=== PATIENT | female | born 1980 | race Caucasian/White ===

== ENCOUNTER 2023-06-21 15:07 | Emergency (ER) | payer MEDICARE, OTHER, SELFPAY ==
[2023-06-21 15:15] VITALS: BP 157/104
--- NOTE | 2023-06-21 16:35 | ED.MUSCINJ ---
HPI-Injury
General
Chief Complaint: Musculo-Skeletal Complaint
Source: patient
Exam Limitations: none
Time Seen by Provider: 06/21/23 15:24
Nursing documentation reviewed up to this point in time: agreed with
Travel History
Have you had any contact with someone who has COVID-19?: No
Do you have any symptoms of coronavirus? Fever > 100 degrees, chills, cough, shortness of breath, sore throat, loss of taste or smell, muscle aches, or headache?: No
History of Present Illness-Injury
Initial Injury comments:
43-year-old female presents with pain in her right fifth toe after stubbing it earlier today. She is able to ambulate comfortably.
Past History
Past History
ED Past Medical History: Hypothyroidism and Psychiatric
ED Past Surgical History: Other (Umbilical herniorrhaphy)
Social History
Tobacco: Non-smoker
Alcohol: None
Drug: None
Personal: Single
Living: with family
Employment: Not employed
Family History
Family History: Diabetes (Patient's mother has diabetes) and Other (She has a mother who has diabetes and hypertension); Negative Hypertension, Early CAD, CAD, Asthma or Cancer
Review of Systems
Review of Systems
Allergies reviewed?: Yes
All Other Systems: ROS reviewed and negative except as documented in HPI and ROS
Musculoskeletal: Reports other (Pain right fifth toe)
Skin: Reports no symptoms
Phy Exam
Physical Exam
Physical Exam:
PHYSICAL EXAMINATION:
General: no apparent distress, not acutely ill
Neuro: alert and oriented.
Psychiatric: well kept. interactive and cooperative
Musculoskeletal: Moves with ease, minimal swelling right fifth toe. The rest of the foot is normal
Skin: Warm, pink.
Injury Course
Orders/Labs/Results
Orders:
Orders
06/21/23 15:25
CR Toe(s) Min 2 Vw Right Urgent
Comment:
Reason For Exam: stubbed 5th toe
MDM/Problems Addressed
Differential Diagnosis Includes:
Fracture, contusion, sprain
MDM/Problems Addressed:
43-year-old female presents with pain in her right fifth toe after stubbing it earlier today. She is able to ambulate comfortably.
X-ray of right fifth toe initially read by this examiner: New fracture
*Critical Care Note
Total Time (30-74mins, 75-104mins- exclusive of procedures): Not Applicable
ED Attending Note
-
Portions of this chart may have been created with voice recognition software.� Occasional wrong word or��sound alike� substitutions may have occurred due to the inherent limitations of voice recognition software.
Discharge Plan
Departure
Patient Disposition: Home (Routine Discharge)
Date of Disposition: 06/21/23
Time of Disposition: 16:39
Patient with high blood pressure during this ER visit?: No
Condition: Good
Discharge Problem:
Contusion of fifth toe of right foot
Instructions: Contusion (DC), BLOOD PRESSURE
Prescriptions:
No Action
norgestimate-ethinyl estradiol [Ivon] 0.25-35 mg-mcg Tablet
1 tab PO DAILY
acetaminophen [Tylenol] 325 mg Tablet
650 mg PO PRN PRN (Reason: pain)
divalproex [Depakote] 500 mg Tablet,Delayed Release (Dr/Ec)
1,500 mg PO QPM
escitalopram oxalate [Lexapro] 20 mg Tablet
20 mg PO DAILY
quetiapine [Seroquel] 400 mg Tablet
400 mg PO QPM
hydrocodone-acetaminophen 5-325 mg tablet
1 tab PO Q6H PRN (Reason: pain) Qty: 20 0RF
Activity Restrictions/Additional Instructions:
As we discussed, the x-ray shows nothing is broken.
Have your blood pressure rechecked in the next week. See your doctor if the top number is consistently above 130
Interventions
Interventions:
*Risk Screen - Suicide Last Done: 06/21/23 15:15
*General Assessment Last Done: 06/21/23 15:15
*Neglect/Abuse Screening Last Done: 06/21/23 15:15
ED- Fall Risk Assessment Last Done: 06/21/23 17:07
*ED COVID-19 Vaccine History Last Done: 06/21/23 15:22
*Nursing Disposition Last Done: 06/21/23 17:07
ED-Musculoskeletal Assessment Last Done: 06/21/23 16:02
Discharge Date and Time
Discharge Date/Time: 06/21/23 17:08
Print Language: YORUBA
[2023-06-21 16:58] VITALS: BP 154/92
== END 2023-06-21 17:08 | disposition home or self-care (01) ==
LOC: EMR 15:07
PROVIDERS: EMERGENCY PHYSICIAN Emergency Medicine; FAMILY PHYSICIAN Family Medicine
DX: S90.121A Contusion of right lesser toe(s) without damage to nail, initial encounter (principal); W22.8XXA Striking against or struck by other objects, initial encounter
CPT/HCPCS: 99283; 73660

== ENCOUNTER 2023-09-12 14:18 | Emergency (ER) | payer MEDICARE, OTHER, SELFPAY ==
[2023-09-12 14:21] VITALS: BP 155/98
[2023-09-12 15:36] VITALS: BP 147/94; BMI 47.0
--- NOTE | 2023-09-12 16:09 | ED.GENMED ---
History of Present Illness
General
Chief Complaint: Skin Problem
Source: patient
Time Seen by Provider: 09/12/23 16:02
History of Present Illness
History of Present Illness:
43yoF with a history of obesity and bipolar disorder presenting with her father for evaluation of a right thigh boil that started about 4 days ago. She states she has a history of similar boils in the past and she believes it developed due to the
heat and friction from walking. She was seen by her PCP 3 days ago and started on doxycycline. She reports compliance with the antibiotics but her symptoms have not improved. Her PCP advised her to go to the ED for evaluation. She denies any
worsening symptoms. No fevers or chills.
Past History
Past History
ED Past Medical History: Hypothyroidism and Psychiatric
ED Past Surgical History: Other (Umbilical herniorrhaphy)
Social History
Tobacco: Non-smoker
Alcohol: None
Drug: None
Personal: Single
Living: with family
Employment: Not employed
Family History
Family History: Diabetes (Patient's mother has diabetes) and Other (She has a mother who has diabetes and hypertension); Negative Hypertension, Early CAD, CAD, Asthma or Cancer
Phy Exam
Physical Exam
Physical Exam:
Approx 2cm x 3cm area of induration and swelling present to the right upper medial thigh. Small amount of surrounding cellulitis. No crepitus.
General Physical Exam
General Presentation: well appearing and no apparent distress
General age: appears stated age
General Skin: warm and dry
General Habitus: normal
Course
Orders/Labs/Results
Orders:
Orders
09/12/23 16:34
Test Result ONCE
09/12/23 16:43
HCG, Urine Qualitative Screen Urgent
Date Specimen was Collected: 09/12/23
Time Specimen was Collected: 16:38
Vital Signs
Initial and Last Documented VS:
Initial Vital Signs
Temp Pulse Resp BP Pulse Ox
98.0 F 117 18 155/98 98
09/12/23 14:21 09/12/23 14:21 09/12/23 14:21 09/12/23 14:21 09/12/23 14:21
Last Documented Vital Signs
Temp Pulse Resp BP Pulse Ox
98.0 F 103 18 147/94 100
09/12/23 14:21 09/12/23 15:36 09/12/23 15:36 09/12/23 15:36 09/12/23 15:36
Procedures
Incision/Drainage/Joint Aspiration
Right Medial Groin:
Anethesia: 1% Lidocaine with Epi
Preparation: cleaned with Betadine
Type of procedure: incise and drain
Nature of site: abscess
Description of abscess: less than 3cm
Loculations broken up: Yes
How much fluid was obtained?: small amount
Fluid description: purulent and bloody
Treatment: left open for drainage
MDM/Problems Addressed
Differential Diagnosis Includes:
43yoF here with a R thigh/groin abscess. Taking doxycycline without improvement. No f/c. Patient is well-appearing in no acute distress. She is afebrile and hemodynamically stable. Patient has a focal area of induration and swelling with a small
amount of surrounding cellulitis. No evidence of NSTI.
*Critical Care Note
Total Time (30-74mins, 75-104mins- exclusive of procedures): Not Applicable
Update Note
Update Note:
I&D performed as above. Small to moderate amount of purulence and bloody drainage expressed. Patient tolerated well with immediate complications. Patient advised to continue doxycycline and add warm compresses. Advised follow-up with PCP and
return to the ED with any worsening symptoms. Patient was discharged stable condition.
ED Attending Note
-
Portions of this chart may have been created with voice recognition software.� Occasional wrong word or��sound alike� substitutions may have occurred due to the inherent limitations of voice recognition software.
Discharge Plan
Departure
Patient Disposition: Home (Routine Discharge)
Date of Disposition: 09/12/23
Time of Disposition: 16:36
Patient with high blood pressure during this ER visit?: Yes
Discharge Problem:
Abscess of right thigh
Instructions: Skin Abscess
Prescriptions:
No Action
norgestimate-ethinyl estradiol [Ivon] 0.25-35 mg-mcg Tablet
1 tab PO DAILY
acetaminophen [Tylenol] 325 mg Tablet
650 mg PO PRN PRN (Reason: pain)
divalproex [Depakote] 500 mg Tablet,Delayed Release (Dr/Ec)
1,500 mg PO QPM
escitalopram oxalate [Lexapro] 20 mg Tablet
20 mg PO DAILY
quetiapine [Seroquel] 400 mg Tablet
400 mg PO QPM
hydrocodone-acetaminophen 5-325 mg tablet
1 tab PO Q6H PRN (Reason: pain) Qty: 20 0RF
Referrals:
Ricki Ruiz MD [Family Provider] -
Activity Restrictions/Additional Instructions:
Continue taking the antibiotics as prescribed. Apply warm compresses to area 4-6x daily.
Please follow-up with your family doctor. Return to the ER with any worsening symptoms, fevers, chills.
Interventions
Interventions:
ED- Fall Risk Assessment Last Done: 09/12/23 15:36
*Nursing Disposition Last Done: 09/12/23 17:08
ED-Skin Assessment Last Done: 09/12/23 15:36
Discharge Date and Time
Discharge Date/Time: 09/12/23 17:08
Print Language: NEPALI
[2023-09-12 16:51] LABS: HCG, Urine Qualitative Screen Negative
== END 2023-09-12 17:08 | disposition home or self-care (01) ==
LOC: EMR 14:18
PROVIDERS: Physician Assistant; EMERGENCY PHYSICIAN Emergency Medicine; FAMILY PHYSICIAN Family Medicine
DX: L02.415 Cutaneous abscess of right lower limb (principal); F31.9 Bipolar disorder, unspecified; R03.0 Elevated blood-pressure reading, without diagnosis of hypertension
CPT/HCPCS: 99282; 10060; 81025

== ENCOUNTER → 2024-06-12 09:18 | Outpatient (REF) | payer MEDICARE, OTHER, SELFPAY ==
[2024-06-12 10:22] LABS: % Basophils 0.4 % (0-2); % Eosinophils 0.9 % (0-6); % Immature Granulocytes 0.4 % (0-0.5); % Lymphocytes 22.6 % (20.5-51.1); % Monocytes 5.6 % (1.7-9.3); % Neutrophils 70.1 % (42.2-75.2); Absolute Basophils 0.1 10^3/uL (0-0.2); Absolute Eosinophils 0.1 10^3/uL (0-0.7); Absolute Immature Granulocytes 0.1 10^3/uL (0-0.05); Absolute Lymphocytes 3.2 10^3/uL (1.2-3.4); Absolute Monocytes 0.8 10^3/uL (0.1-0.6); Absolute Neutrophils 9.8 10^3/uL (1.4-6.5); Hemoglobin 14.3 g/dL (12.0-16.0); Mean Corp Hgb Conc. 33.3 g/dL (33.0-37.0); Mean Corpuscular Hgb 28.9 pg (27.0-31.0); Mean Platelet Volume 10.5 fL (7.4-10.4); Nucleated Red Blood Cells % 0 %; Platelet Count 255 10^3/uL (130-400); Red Blood Cell Count 4.94 10^6/uL (4.20-5.40); Red Cell Dist. Width 12.8 % (11.5-14.5)
[2024-06-12 10:44] LABS: Carbon Dioxide 23 mmol/L (22-30)
[2024-06-12 12:43] LABS: ALT (SGPT) 14 U/L (0-35); AST (SGOT) 17 U/L (14-36); Albumin 4.8 g/dl (3.5-5.0); Alkaline Phosphatase 133 U/L (38-126); Blood Urea Nitrogen 12 mg/dl (7-17); Calcium 10.2 mg/dl (8.4-10.2); Chloride 107 mmol/L (98-107); Glucose 126 mg/dl (70-99); HDL Cholesterol 93 mg/dl; LDL Cholesterol, Calculated 88 mg/dl; Potassium 3.8 mmol/L (3.5-5.1); Sodium 142 mmol/L (135-145); Total Bilirubin 0.7 mg/dl (0.2-1.3); Total Cholesterol 209 mg/dl (50-199); Total Protein 7.3 g/dl (6.3-8.2); Triglyceride 140 mg/dl (10-149); Very Low Density Lipoprotein 28 mg/dl (0-30); eGFR > 60.00
[2024-06-13 17:56] LABS: Lamotrigine (Lamictal) 1.7 ug/mL (3.0-15.0)
== END ==
LOC: RCS 09:18
PROVIDERS: ATTENDING PHYSICIAN Nurse Practitioner Psychiatric/Mental Health; FAMILY PHYSICIAN Family Medicine
DX: Z79.899 Other long term (current) drug therapy (principal)
CPT/HCPCS: 36415; 80053; 80061; 80175; 85025; 93005

== ENCOUNTER 2024-06-24 12:34 | Emergency (ER) | payer MEDICARE, OTHER, SELFPAY ==
[2024-06-24 12:37] VITALS: BP 165/100
--- NOTE | 2024-06-24 13:45 | ED.GENMED ---
History of Present Illness
General
Chief Complaint: Medication Reaction
Source: patient
Exam Limitations: none
Time Seen by Provider: 06/24/24 13:45
Nursing documentation reviewed up to this point in time: agreed with
History of Present Illness
History of Present Illness:
44-year-old female with history of anxiety, bipolar disorder, panic attacks, depression presents for concern about not being able to eat, nausea, (no vomiting) due to feeling anxious about weaning off her Zyprexa and starting on Seroquel. She has
also awakened in the middle of the night with sweating past 2 nights. She has Lorazepam at home to use if needed. Took a dose 2 nights ago with no relief of her anxiety.
She cannot speak to her Psychiatrist for 2 more days (after vacation).
Denies SI or self harm thoughts. She has been able to eat yogurt
Past History
Past History
ED Past Medical History: Hypothyroidism and Psychiatric
ED Past Surgical History: Other (Umbilical herniorrhaphy)
Social History
Tobacco: Non-smoker
Alcohol: None
Drug: None
Personal: Single
Living: with family
Employment: Not employed
Family History
Family History: Diabetes (Patient's mother has diabetes) and Other (She has a mother who has diabetes and hypertension); Negative Hypertension, Early CAD, CAD, Asthma or Cancer
Review of Systems
Review of Systems
Allergies reviewed?: Yes
Constitutional: Denies fever
Respiratory: Denies trouble breathing
Cardiac: Denies chest pain
ABD/GI: Reports nausea and diarrhea; Denies abdominal pain or vomiting
: Denies dysuria, frequency or difficulty voiding
Skin: Reports no symptoms
Neurological: Reports no symptoms
Phy Exam
Physical Exam
Physical Exam:
GENERAL: No acute distress. A&Ox3.
CONSTITUTIONAL: Afebrile.
EYES: clear, conjunctivae normal
ENMT: moist mucus membranes, Pharynx nl
RESPIRATORY: Regular respirations, nonlabored, lungs clear.
CARDIOVASCULAR: Regular rate and rhythm, no murmurs, no rubs.
GI: Soft, nontender, normal BS
MUSCULOSKELETAL: Moves with ease. Well perfused.
SKIN: Warm, dry, pink
PSYCH: Mildly anxious mood and affect. Well kept, interactive and appropriate
NEUROLOGIC: Awake, alert and oriented. No focal neurological deficits
Course
Orders/Labs/Results
Orders:
Orders
06/24/24 14:36
Complete Blood Count/With Diff Urgent
Comprehensive Metabolic Panel Urgent
TSH Reflex To Free T4 Urgent
06/24/24 15:22
Dicyclomine [Bentyl] 10 mg PO NOW STA
Abnormal Lab Results
06/24/24
14:36
WBC 14.6 H 10^3/uL
(4.8-10.8)
Abs Immat Gran (auto) 0.1 H 10^3/uL
(0-0.05)
Absolute Neuts (auto) 9.9 H 10^3/uL
(1.4-6.5)
Absolute Lymphs (auto) 3.7 H 10^3/uL
(1.2-3.4)
Absolute Monos (auto) 0.9 H 10^3/uL
(0.1-0.6)
Chloride 109 H mmol/L
(98-107)
Carbon Dioxide 20 L mmol/L
(22-30)
Glucose 122 H mg/dl
(70-99)
Calcium 10.5 H mg/dl
(8.4-10.2)
06/24/24 14:36
06/24/24 14:36
Vital Signs
Initial and Last Documented VS:
Initial Vital Signs
Temp Pulse Resp BP Pulse Ox
98.2 F 102 18 165/100 98
06/24/24 12:37 06/24/24 12:37 06/24/24 12:37 06/24/24 12:37 06/24/24 12:37
Last Documented Vital Signs
Temp Pulse Resp BP Pulse Ox
98.2 F 102 18 165/100 98
06/24/24 12:37 06/24/24 12:37 06/24/24 12:37 06/24/24 12:37 06/24/24 12:37
MDM/Problems Addressed
Differential Diagnosis Includes:
anxiety about health, side effect of medications, hormonal abnormality
MDM/Problems Addressed:
44-year-old female with history of anxiety, bipolar disorder, panic attacks, depression presents for concern about not being able to eat, nausea, (no vomiting) due to feeling anxious about weaning off her Zyprexa and starting on Seroquel. She has
also awakened in the middle of the night with sweating past 2 nights. She has Lorazepam at home to use if needed. Took a dose 2 nights ago with no relief of her anxiety.
She cannot speak to her Psychiatrist for 2 more days (after vacation).
Denies SI or self harm thoughts. She has been able to eat yogurt
She states she is mainly concerned about not being able to eat
Had out pt labwork 12 days ago CBC, CMP with mild leukocytosis, otherwise normal.
3:15 PM:
CBC unchanged from 12 days ago. Mild leukocytosis may be reactive from stress, anxiety and nausea
Patient reassured, instructed to recheck WBC in 1-2 weeks
She has remained pleasant, states she is hungry and wants to get something to eat.
*Critical Care Note
Total Time (30-74mins, 75-104mins- exclusive of procedures): Not Applicable
ED Attending Note
-
Portions of this chart may have been created with voice recognition software.� Occasional wrong word or��sound alike� substitutions may have occurred due to the inherent limitations of voice recognition software.
Discharge Plan
Departure
Patient Disposition: Home (Routine Discharge)
Date of Disposition: 06/24/24
Time of Disposition: 15:23
Patient with high blood pressure during this ER visit?: No
Condition: Good
Discharge Problem:
Anxiety about health, Nausea, Abdominal pain
Instructions: Abdominal pain in adults - Discharge instructions, Anxiety in adults - ED discharge instructions
Prescriptions:
New
dicyclomine 10 mg capsule
10 mg PO QID PRN (Reason: abdominal cramping) Qty: 20 0RF
No Action
norgestimate-ethinyl estradiol [Ivon] 0.25-35 mg-mcg Tablet
1 tab PO DAILY
acetaminophen [Tylenol] 325 mg Tablet
650 mg PO PRN PRN (Reason: pain)
divalproex [Depakote] 500 mg Tablet,Delayed Release (Dr/Ec)
1,500 mg PO QPM
escitalopram oxalate [Lexapro] 20 mg Tablet
20 mg PO DAILY
quetiapine [Seroquel] 400 mg Tablet
400 mg PO QPM
hydrocodone-acetaminophen 5-325 mg tablet
1 tab PO Q6H PRN (Reason: pain) Qty: 20 0RF
Referrals:
Your, Psychiatrist [Other] - Call in 1-3 days for appt
Ricki Ruiz MD [Family Provider] -
Activity Restrictions/Additional Instructions:
As we discussed, nothing worrisome in your exam here today. Your white blood cell count is a little elevated but that is most likely due to stress/anxiety
Make an appointment with your primary doctor and have it rechecked in a week.
Contact your psychiatrist on Tuesday and inform of today's visit.
Use your lorazepam as if needed
I sent a prescription to your pharmacy for Bentyl to use as needed for abdominal cramping. You were given a dose here today.
Get out and take a walk if it is even for 5 minutes a couple of times a day now that the weather is nice. Physical exercise definitely helps ease stress and anxiety
Contact your [facility] Support Program in [place] and make appointment
Interventions
Interventions:
*Risk Screen - Suicide Last Done: 06/24/24 12:36
*General Assessment Last Done: 06/24/24 12:37
*Neglect/Abuse Screening Last Done: 06/24/24 12:37
*ED COVID-19 Vaccine History Last Done: 06/24/24 12:37
Discharge Date and Time
Print Language: MONGOLIAN
[2024-06-24 14:47] LABS: % Basophils 0.3 % (0-2); % Eosinophils 0.4 % (0-6); % Immature Granulocytes 0.5 % (0-0.5); % Lymphocytes 25.1 % (20.5-51.1); % Monocytes 6.1 % (1.7-9.3); % Neutrophils 67.6 % (42.2-75.2); Absolute Eosinophils 0.1 10^3/uL (0-0.7); Absolute Immature Granulocytes 0.1 10^3/uL (0-0.05); Absolute Lymphocytes 3.7 10^3/uL (1.2-3.4); Absolute Monocytes 0.9 10^3/uL (0.1-0.6); Absolute Neutrophils 9.9 10^3/uL (1.4-6.5); Hematocrit 40.6 % (37.0-47.0); Hemoglobin 14.2 g/dL (12.0-16.0); Mean Corpuscular Hgb 29.3 pg (27.0-31.0); Mean Corpuscular Volume 83.7 fL (81.0-99.0); Mean Platelet Volume 9.7 fL (7.4-10.4); Nucleated Red Blood Cells % 0 %; Platelet Count 277 10^3/uL (130-400); Red Blood Cell Count 4.85 10^6/uL (4.20-5.40); Red Cell Dist. Width 12.7 % (11.5-14.5); White Blood Cell Count 14.6 10^3/uL (4.8-10.8)
[2024-06-24 14:57] LABS: ALT (SGPT) 20 U/L (0-35); AST (SGOT) 20 U/L (14-36); Albumin 4.5 g/dl (3.5-5.0); Alkaline Phosphatase 110 U/L (38-126); Blood Urea Nitrogen 12 mg/dl (7-17); Calcium 10.5 mg/dl (8.4-10.2); Carbon Dioxide 20 mmol/L (22-30); Chloride 109 mmol/L (98-107); Glucose 122 mg/dl (70-99); Sodium 139 mmol/L (135-145); Total Bilirubin 0.7 mg/dl (0.2-1.3); Total Protein 7.1 g/dl (6.3-8.2); eGFR > 60.00
[2024-06-24 15:32] LABS: TSH Reflex To Free T4 3.89 uIU/ml (0.47-4.68)
[2024-06-24] MEDS: BENTYL 10 MG PO (15:46)
[2024-06-24 15:54] VITALS: BP 114/93
== END 2024-06-24 16:07 | disposition home or self-care (01) ==
LOC: EMR 12:34
PROVIDERS: Registered Nurse; EMERGENCY PHYSICIAN Emergency Medicine; FAMILY PHYSICIAN Family Medicine
DX: F41.9 Anxiety disorder, unspecified (principal); R11.0 Nausea; R10.9 Unspecified abdominal pain
CPT/HCPCS: 99283; 80053; 84443; 85025

== ENCOUNTER 2024-06-26 15:21 | Emergency (ER) | payer MEDICARE, OTHER, SELFPAY ==
[2024-06-26 15:30] VITALS: BP 148/106
[2024-06-26 15:48] LABS: % Basophils 0.6 % (0-2); % Eosinophils 0.1 % (0-6); % Immature Granulocytes 0.7 % (0-0.5); % Lymphocytes 20.8 % (20.5-51.1); % Monocytes 5.8 % (1.7-9.3); Absolute Basophils 0.1 10^3/uL (0-0.2); Absolute Immature Granulocytes 0.1 10^3/uL (0-0.05); Absolute Lymphocytes 3.4 10^3/uL (1.2-3.4); Absolute Monocytes 0.9 10^3/uL (0.1-0.6); Absolute Neutrophils 11.7 10^3/uL (1.4-6.5); Hematocrit 42.7 % (37.0-47.0); Hemoglobin 14.7 g/dL (12.0-16.0); Mean Corp Hgb Conc. 34.4 g/dL (33.0-37.0); Mean Corpuscular Hgb 28.9 pg (27.0-31.0); Mean Corpuscular Volume 84.1 fL (81.0-99.0); Mean Platelet Volume 10.1 fL (7.4-10.4); Nucleated Red Blood Cells % 0 %; Platelet Count 282 10^3/uL (130-400); Red Blood Cell Count 5.08 10^6/uL (4.20-5.40); Red Cell Dist. Width 12.7 % (11.5-14.5); White Blood Cell Count 16.3 10^3/uL (4.8-10.8)
[2024-06-26 15:57] LABS: HCG, Serum Qualitative Screen Negative
[2024-06-26 16:05] LABS: ALT (SGPT) 42 U/L (0-35); AST (SGOT) 35 U/L (14-36); Albumin 4.9 g/dl (3.5-5.0); Alkaline Phosphatase 109 U/L (38-126); Blood Urea Nitrogen 12 mg/dl (7-17); Calcium 10.4 mg/dl (8.4-10.2); Carbon Dioxide 17 mmol/L (22-30); Chloride 108 mmol/L (98-107); Glucose 151 mg/dl (70-99); Potassium 3.9 mmol/L (3.5-5.1); Sodium 140 mmol/L (135-145); Total Bilirubin 0.9 mg/dl (0.2-1.3); Total Protein 7.8 g/dl (6.3-8.2); eGFR > 60.00
[2024-06-26 16:23] LABS: Lipase 68 U/L (23-300)
[2024-06-26 17:39] VITALS: BMI 43.6
--- NOTE | 2024-06-26 17:55 | ED.GENMED ---
History of Present Illness
General
Chief Complaint: Abdominal Pain
Source: patient
Exam Limitations: none
Time Seen by Provider: 06/26/24 17:43
Nursing documentation reviewed up to this point in time: agreed with
History of Present Illness
History of Present Illness:
Patient is a 44-year-old female presenting with persistent abdominal pain associate with nausea and diarrhea. Patient reports a vague upper abdominal pain associated with nausea and diarrhea. She denies any fevers, vomiting, or urinary symptoms.
Patient states that she was seen in the emergency department two days w/ similar symptoms however they have not improved.
Patient is having trouble tolerating significant food/liquid by mouth. She has been able to eat only a small amount of yogurt over the past few days which typically does help her symptoms.
She is concerned that symptoms may be secondary to new medication changes that are being done by her psychiatrist.
Patient denies any travel or recent antibiotic use. No hematochezia or melena.
No sick contacts.
Past History
Past History
ED Past Medical History: Hypothyroidism and Psychiatric
ED Past Surgical History: Other (Umbilical herniorrhaphy)
Social History
Tobacco: Non-smoker
Alcohol: None
Drug: None
Personal: Single
Living: with family
Employment: Not employed
Family History
Family History: Diabetes (Patient's mother has diabetes) and Other (She has a mother who has diabetes and hypertension); Negative Hypertension, Early CAD, CAD, Asthma or Cancer
Review of Systems
Review of Systems
Allergies reviewed?: Yes
All Other Systems: ROS reviewed and negative except as documented in HPI and ROS
Phy Exam
Physical Exam
Physical Exam:
Vitals: Hypertensive, otherwise vital signs stable. Afebrile.
General: Patient is well appearing, no acute distress
Skin: Warm and dry, no rashes or lesions
Head: Normocephalic, atraumatic
Eyes: Sclera nonicteric.
Throat: Protecting airway
Neck: Normal ROM, no cervical spine tenderness, no meningismus
Cardiac: Regular rate and rhythm, no murmurs.
Pulm: Normal respiratory effort, no wheezes, rales, rhonchi heard on exam.
Abdomen: Abdomen soft. Mild epigastric tenderness. No rebound tenderness or guarding. Negative Lam sign. No tenderness at McBurney's point.
Extremities: No evidence of cyanosis or edema
Neuro: AAOx3. Grossly intact.
Psychiatric: Normal affect.
Course
Orders/Labs/Results
Orders:
Orders
06/26/24 15:34
Test Result ONCE
06/26/24 15:39
Complete Blood Count/With Diff Urgent
Comprehensive Metabolic Panel Urgent
HCG, Serum Qualitative Screen Urgent
Lipase Urgent
06/26/24 17:50
0.9% Sodium Chloride 1000 ml [Nss] 1,000 ml IV BOLUS
Famotidine [Pepcid] 20 mg IV NOW STA
Ketorolac [Toradol] 15 mg IV NOW STA
06/26/24 17:52
US Abdomen Complete/Upper Urgent
Comment:
Reason For Exam: upper abdominal pain +nausea, leukocytosis
06/26/24 19:05
Urinalysis Reflex To Culture Urgent
Date Specimen was Collected: 06/26/24
Time Specimen was Collected: 18:37
Urine Microscopic Reflex Cult Urgent
06/26/24 19:19
CT Abd/pelvis W Iv Cont Urgent
Comment:
Reason For Exam: Abdominal pain, nasuea/diarrhea
Abnormal Lab Results
06/26/24 06/26/24
15:39 19:05
WBC 16.3 H 10^3/uL
(4.8-10.8)
Abs Immat Gran (auto) 0.1 H 10^3/uL
(0-0.05)
Absolute Neuts (auto) 11.7 H 10^3/uL
(1.4-6.5)
Absolute Monos (auto) 0.9 H 10^3/uL
(0.1-0.6)
Immature Gran % 0.7 H %
(0-0.5)
Chloride 108 H mmol/L
(98-107)
Carbon Dioxide 17 L mmol/L
(22-30)
Glucose 151 H mg/dl
(70-99)
Calcium 10.4 H mg/dl
(8.4-10.2)
ALT 42 H U/L
(0-35)
Urine Ketones 2+ A
(Negative)
Ur Occult Blood Reflex 2+ A
(Negative)
Urine Bacteria (Reflex) Few A
(Negative)
Urine Albumin (Reflex) 2+ A
(Neg - Trace)
06/26/24 15:39
06/26/24 15:39
Vital Signs
Initial and Last Documented VS:
Initial Vital Signs
Temp Pulse Resp BP Pulse Ox
98.5 F 95 18 148/106 98
06/26/24 15:30 06/26/24 15:30 06/26/24 15:30 06/26/24 15:30 06/26/24 15:30
Last Documented Vital Signs
Temp Pulse Resp BP Pulse Ox
98.5 F 96 18 152/83 100
06/26/24 15:30 06/26/24 21:27 06/26/24 21:27 06/26/24 21:27 06/26/24 21:27
MDM/Problems Addressed
Differential Diagnosis Includes:
Not limited to: viral gastroenteritis, pancreatitis, acute cholecystitis, biliary colic, GERD, diverticulitis, etc
MDM/Problems Addressed:
44-year-old female presenting with abdominal pain, diarrhea, and nausea over the past few days. No fever, vomiting, or urinary symptoms. Seen in ED two days ago with negative laboratory analysis. Patient hypertensive on arrival, otherwise the stable
vital signs. Physical exam as above. Basic labs were initiated in triage significant for leukocytosis of 16. Patient has hx of elevated white count in the past. Chemistry shows an acidosis likely secondary to G.I. losses without other clinically
significant abnormalities. Differential broad at this time. No associated chest pain or SOB. Do not suspect cardiac etiology. Given persistent abdominal pain and increasing leukocytosis � will obtain abdominal ultrasound. Will give IV fluids,
Toradol, Pepcid.
Update: Abdominal ultrasound without acute findings. Urine is not infected. On reassessment � patient still reports mild discomfort, however appears in no distress. After discussion � will proceed with CT scan abdomen/pelvis for further evaluation.
Update: CT abd/pelvis without acute findings. There was an incidentally found hepatic lesion, which was discussed with patient and recommended to have outpatient MRI imaging. Patient was provided copy of CT report to follow with PCP. Work up in ED
negative. Low suspicion for acute infectious process at this time. Possible viral in nature. Do not suspect to be related to patient�s medication�s although advised close follow up with PCP. Feel stable for discharge home with return precautions.
Patient comfortable with plan.
Chronic conditions affecting care:
N/A
Acute Exacerbation and/or Progression of Chronic Illness:
N/A
*Radiology
Radiology exam reviewed: preliminary read by ED provider and radiology read reviewed
*Pulse Oximetry
Patient hypoxic: no
*EKG
Interpreted by ED Provider?: NA
*High [employer] Coordinator Interpretation
Rate: High School Coordinator- N/A
*Critical Care Note
Total Time (30-74mins, 75-104mins- exclusive of procedures): Not Applicable
Patient Management
Escalation/DeEscalation of care consider admission/obs:
Admit not indicated
ED Attending Note
-
Portions of this chart may have been created with voice recognition software.� Occasional wrong word or��sound alike� substitutions may have occurred due to the inherent limitations of voice recognition software.
Discharge Plan
Departure
Patient Disposition: Home (Routine Discharge)
Date of Disposition: 06/26/24
Time of Disposition: 21:35
Patient with high blood pressure during this ER visit?: No
Discharge Problem:
Abdominal pain, Diarrhea
Instructions: Acute Diarrhea, Abdominal Pain, BLOOD PRESSURE
Prescriptions:
No Action
norgestimate-ethinyl estradiol [Ivon] 0.25-35 mg-mcg Tablet
1 tab PO DAILY
acetaminophen [Tylenol] 325 mg Tablet
650 mg PO PRN PRN (Reason: pain)
divalproex [Depakote] 500 mg Tablet,Delayed Release (Dr/Ec)
1,500 mg PO QPM
escitalopram oxalate [Lexapro] 20 mg Tablet
20 mg PO DAILY
quetiapine [Seroquel] 400 mg Tablet
400 mg PO QPM
hydrocodone-acetaminophen 5-325 mg tablet
1 tab PO Q6H PRN (Reason: pain) Qty: 20 0RF
dicyclomine 10 mg capsule
10 mg PO QID PRN (Reason: abdominal cramping) Qty: 20 0RF
Referrals:
Dom Mathias MD [Family Provider] - Follow up in 5-7 days
Activity Restrictions/Additional Instructions:
RETURN TO THE EMERGENCY DEPARTMENT WITH ANY HIGH FEVERS, PERSISTENT/WORSENING ABDOMINAL PAIN, INTRACTABLE VOMITING/DIARRHEA, SIGNS OF SEVERE DEHYDRATION, OR ANY OTHER
- You did have an elevated white blood cell count the emergency department. You should have this rechecked with your primary to ensure trending down. As discussed�there was an incidental finding on your liver on the CAT scan performed today. You
should have this further evaluated and MRI by your PCP.
- It is important stay well-hydrated. I would recommend a bland diet over the next few days as symptoms improve. Continue to take all medications as prescribed.
- Follow-up with PCP for further evaluation/manage that symptoms are improving
Monitor your symptoms closely and return to the emergency department with any acute worsening/new symptoms or any other concerns
Interventions
Interventions:
*Risk Screen - Suicide Last Done: 06/26/24 15:30
*General Assessment Last Done: 06/26/24 15:30
*Neglect/Abuse Screening Last Done: 06/26/24 15:30
*ED- Fall Risk Assessment Last Done: 06/26/24 17:40
*ED COVID-19 Vaccine History Last Done: 06/26/24 15:30
*Nursing Disposition Last Done: 06/26/24 21:53
AX-Gnkurx-Jjhcisgydz Assessment Last Done: 06/26/24 17:38
Discharge Date and Time
Discharge Date/Time: 06/26/24 21:53
Print Language: [id number]
[2024-06-26] MEDS: TORADOL 15 MG IV (18:52)
[2024-06-26] MEDS: PEPCID 20 MG IV (18:52)
[2024-06-26] MEDS: NSS 1000 IV (18:52)
[2024-06-26 19:13] LABS: Urine Albumin 2+ (Neg - Trace); Urine Bilirubin Negative (Negative); Urine Character Slightly Cloudy (Clear); Urine Color Yellow; Urine Glucose Negative (Negative); Urine Ketone 2+ (Negative); Urine Leukocyte Negative (Negative); Urine Nitrite Negative (Negative); Urine Occult Blood 2+ (Negative); Urine Urobilinogen 1+ (Neg - 1+)
[2024-06-26 19:35] LABS: Urine Calcium Oxalate Crystals Present; Urine Squamous Cell >30 /LPF (Few)
[2024-06-26 19:36] LABS: Urine Mucus Moderate; Urine Red Blood Cell 0-2 /HPF (0-2)
[2024-06-26 19:37] LABS: Urine Bacteria Few (Negative); Urine White Cell 0-2 /HPF (0-5)
[2024-06-26 21:27] VITALS: BP 152/83
== END 2024-06-26 21:53 | disposition home or self-care (01) ==
LOC: EMR 15:21
PROVIDERS: Physician Assistant; EMERGENCY PHYSICIAN Emergency Medicine; FAMILY PHYSICIAN Family Medicine
DX: R10.10 Upper abdominal pain, unspecified (principal); R19.7 Diarrhea, unspecified; R11.0 Nausea; E03.9 Hypothyroidism, unspecified; E87.20 Acidosis, unspecified
CPT/HCPCS: 96374; 96375; 96361; 99284; 74177; 76700; 80053; 81003; 81015; 83690; 84703; 85025; Q9967